=== PATIENT | male | born 1940 ===

== ENCOUNTER 2021-11-01 10:39 | Inpatient (IN) ==
[2021-11-01] MEDS ORDERED: ONDANSETRON 4 MG/2 ML VIAL IV STA (11:25)
[2021-11-01] MEDS ORDERED: PANTOPRAZOLE 40 MG VIAL IV STA (11:25)
[2021-11-01] MEDS ORDERED: SODIUM CHLORIDE 0.9% 1,000 ML IV STA (11:25)
[2021-11-01 11:40] LABS: Basophils % 0.1 % (0.0-0.8); Eosinophils % 0.1 % (0.00-10.9); Immature Granulocytes % 1.6 %; Immature Granulocytes Absolute 0.22 #; Lymphocytes # 2.6 10*3/uL (1.4-4.0); Lymphocytes % 19.2 % (21.2-54.2); Mean Corpuscular HGB Conc 30.4 GM/DL (32-36); Mean Corpuscular Volume 101.2 FL (87-102); Mean Platelet Volume 11.4 FL (9.6-12.0); Monocytes % 7.4 % (1.7-12.7); NRBC # 0.03 10*3/uL; Neutrophils % 71.6 % (38.7-73.9); Platelet Count 210 T/CUMM (130-400); Red Blood Count 1.66 MC/CUMM (3.8-5.5); White Blood Count 13.4 T/CUMM (4-12)
[2021-11-01 11:43] LABS: Hematocrit 16.8 VOL% (42.0-52.0); Hemoglobin 5.1 GM/DL (14.0-18.0)
[2021-11-01] MEDS ORDERED: SODIUM CHLORIDE 0.9% 1,000 ML IV PRN (11:47)
[2021-11-01 12:12] LABS: INR 1.2; PT Patient Result 13.4 SECS (10.5-12.0); Partial Thromboplastin Time 25.1 SECS (23.8-32.1)
[2021-11-01 12:52] LABS: Albumin 2.7 G/DL (3.4-5.0); Bilirubin,Total 0.5 MG/DL (0.20-1.00); Calcium 8.5 MG/DL (8.5-10.1); Osmolality,Calculated 308.4 MOS/KG (273-304); Potassium 3.2 MMOL/L (3.5-5.1); Total Protein 5.9 G/DL (6.4-8.2)
[2021-11-01] MEDS ORDERED: ACETAMINOPHEN 325 MG TABLET PO PRN (13:32)
[2021-11-01] MEDS ORDERED: DOCUSATE SODIUM 100 MG CAPSULE PO PRN (13:32)
[2021-11-01] MEDS ORDERED: GLUCAGON 1 MG VIAL IM PRN (13:32)
[2021-11-01] MEDS ORDERED: DEXTROSE 50% 25 GM/50 ML SYRINGE IV PRN (13:32)
[2021-11-01] MEDS ORDERED: ONDANSETRON 4 MG/2 ML VIAL IV PRN (13:32)
[2021-11-01] MEDS ORDERED: PROMETHAZINE 25 MG/1 ML VIAL IM PRN (13:32)
[2021-11-01] MEDS ORDERED: POTASSIUM CHLORIDE RIDER 10 MEQ/100 ML PREMIX IV PRN (13:50)
[2021-11-01 14:11] LABS: Thyroid Stimulating Hormone 0.783 uIU/ml (0.358-3.74)
[2021-11-01] MEDS: LACTATED RINGERS 1,000 ML IV SCH (20:27)
[2021-11-01] MEDS: PANTOPRAZOLE 40 MG VIAL IV SCH (21:04)
[2021-11-01 21:29] LABS: Hematocrit 21.9 VOL% (42.0-52.0)
[2021-11-01 21:31] LABS: Hemoglobin 6.8 GM/DL (14.0-18.0)
[2021-11-01 23:40] LABS: Hematocrit 21.3 VOL% (42.0-52.0); Hemoglobin 6.7 GM/DL (14.0-18.0)
[2021-11-02 06:16] LABS: Basophils % 0.3 % (0.0-0.8); Eosinophils # 0.1 10*3/uL (0.0-0.87); Eosinophils % 0.5 % (0.00-10.9); Hematocrit 20.7 VOL% (42.0-52.0); Hemoglobin 6.5 GM/DL (14.0-18.0); Immature Granulocytes % 2.9 %; Immature Granulocytes Absolute 0.34 #; Lymphocytes # 2.8 10*3/uL (1.4-4.0); Lymphocytes % 24.2 % (21.2-54.2); Mean Corpuscular HGB Conc 31.4 GM/DL (32-36); Mean Corpuscular Volume 95.8 FL (87-102); Mean Platelet Volume 11.3 FL (9.6-12.0); Monocytes % 12.3 % (1.7-12.7); NRBC # 0.11 10*3/uL; Neutrophils % 59.8 % (38.7-73.9); Platelet Count 153 T/CUMM (130-400); Red Blood Count 2.16 MC/CUMM (3.8-5.5); Red Cell Distribution Width 18.2 % (9.3-17.3); White Blood Count 11.7 T/CUMM (4-12)
[2021-11-02 06:18] LABS: Calcium 7.5 MG/DL (8.5-10.1); Osmolality,Calculated 317.6 MOS/KG (273-304); Potassium 3.2 MMOL/L (3.5-5.1)
[2021-11-02 06:28] LABS: Eosinophils 1 % (0-10); Lymphocytes 17 % (20-55); Nucleated Red Blood Cells 3 (0-5); Platelet Estimate Normal; Segmented Neutrophils 77 % (50-85); Total Cells Counted 100
[2021-11-02 06:29] LABS: Hypochromia 1+
[2021-11-02] MEDS: LACTATED RINGERS 1,000 ML IV SCH ×2 (06:42→06:43)
[2021-11-02] MEDS: PANTOPRAZOLE 40 MG VIAL IV SCH ×2 (09:17→22:10)
[2021-11-02 09:28] LABS: Hematocrit 22.8 VOL% (42.0-52.0)
[2021-11-02] MEDS ORDERED: DEXTROSE 10% 250 ML BAG IV PRN (11:00)
[2021-11-02] MEDS ORDERED: SODIUM CHLORIDE 0.9% 1,000 ML IV PRN (13:39)
[2021-11-02 14:25] LABS: Hematocrit 25.2 VOL% (42.0-52.0); Hemoglobin 7.9 GM/DL (14.0-18.0)
[2021-11-02] MEDS: DILTIAZEM CD 240 MG CAPSULE PO SCH (15:11)
[2021-11-02] MEDS: carvediloL 3.125 MG TABLET PO SCH ×2 (15:11→22:08)
[2021-11-02] MEDS: SODIUM CHLORIDE 0.45% 1,000 ML IV SCH (15:31)
[2021-11-02] MEDS: POTASSIUM CHLORIDE 20 MEQ TABLET PO PRN ×3 (16:43→22:08)
[2021-11-02 19:22] LABS: Hematocrit 22.3 VOL% (42.0-52.0)
[2021-11-02 20:59] LABS: Hematocrit 21.5 VOL% (42.0-52.0); Hemoglobin 6.9 GM/DL (14.0-18.0)
[2021-11-03] MEDS: SODIUM CHLORIDE 0.45% 1,000 ML IV SCH ×2 (00:31→11:51)
[2021-11-03 02:35] LABS: Hematocrit 21.8 VOL% (42.0-52.0); Hemoglobin 6.7 GM/DL (14.0-18.0)
[2021-11-03 02:48] LABS: Calcium 7.3 MG/DL (8.5-10.1); Osmolality,Calculated 308.7 MOS/KG (273-304); Potassium 4.3 MMOL/L (3.5-5.1)
[2021-11-03 06:57] LABS: Basophils % 0.3 % (0.0-0.8); Eosinophils # 0.1 10*3/uL (0.0-0.87); Eosinophils % 0.8 % (0.00-10.9); Hematocrit 23.2 VOL% (42.0-52.0); Hemoglobin 7.1 GM/DL (14.0-18.0); Immature Granulocytes % 3.4 %; Immature Granulocytes Absolute 0.42 #; Lymphocytes # 2.7 10*3/uL (1.4-4.0); Lymphocytes % 22.3 % (21.2-54.2); Mean Corpuscular HGB Conc 30.6 GM/DL (32-36); Mean Corpuscular Volume 97.9 FL (87-102); Mean Platelet Volume 11.2 FL (9.6-12.0); Monocytes % 14.8 % (1.7-12.7); Neutrophils % 58.4 % (38.7-73.9); Platelet Count 155 T/CUMM (130-400); Red Blood Count 2.37 MC/CUMM (3.8-5.5); Red Cell Distribution Width 19.4 % (9.3-17.3); White Blood Count 12.3 T/CUMM (4-12)
[2021-11-03 07:23] LABS: Lymphocytes 25 % (20-55); Metamyelocytes 1 %; Nucleated Red Blood Cells 2 (0-5); Promyelocytes 1 %; Segmented Neutrophils 60 % (50-85); Total Cells Counted 100
[2021-11-03 07:24] LABS: Hypochromia 2+; Platelet Estimate Normal; Polychromasia Few
[2021-11-03] MEDS ORDERED: SODIUM CHLORIDE 0.9% 1,000 ML IV PRN (07:57)
[2021-11-03] MEDS: carvediloL 3.125 MG TABLET PO SCH ×2 (08:51→20:56)
[2021-11-03] MEDS: DILTIAZEM CD 240 MG CAPSULE PO SCH (08:51)
[2021-11-03] MEDS: PANTOPRAZOLE 40 MG VIAL IV SCH (08:51)
[2021-11-03] MEDS: ATORVASTATIN 10 MG TABLET PO SCH (08:51)
[2021-11-03 09:10] LABS: Hematocrit 24.9 VOL% (42.0-52.0); Hemoglobin 7.6 GM/DL (14.0-18.0)
[2021-11-03 15:52] LABS: Hematocrit 24.9 VOL% (42.0-52.0); Hemoglobin 7.7 GM/DL (14.0-18.0)
[2021-11-03] MEDS: PANTOPRAZOLE 40 MG TABLET PO SCH (18:17)
[2021-11-03 20:19] LABS: Hematocrit 25.3 VOL% (42.0-52.0); Hemoglobin 7.8 GM/DL (14.0-18.0)
[2021-11-04] MEDS: SODIUM CHLORIDE 0.45% 1,000 ML IV SCH (01:10)
[2021-11-04 05:36] LABS: Basophils % 0.3 % (0.0-0.8); Eosinophils # 0.1 10*3/uL (0.0-0.87); Hematocrit 24.5 VOL% (42.0-52.0); Hemoglobin 7.6 GM/DL (14.0-18.0); Immature Granulocytes % 2.2 %; Lymphocytes # 1.8 10*3/uL (1.4-4.0); Lymphocytes % 19.8 % (21.2-54.2); Mean Corpuscular Volume 91.8 FL (87-102); Mean Platelet Volume 10.8 FL (9.6-12.0); Monocytes % 14.3 % (1.7-12.7); NRBC # 0.06 10*3/uL; Neutrophils % 62.4 % (38.7-73.9); Platelet Count 135 T/CUMM (130-400); Red Blood Count 2.67 MC/CUMM (3.8-5.5); Red Cell Distribution Width 22.8 % (9.3-17.3); White Blood Count 8.9 T/CUMM (4-12)
[2021-11-04] MEDS: PANTOPRAZOLE 40 MG TABLET PO SCH ×3 (05:54→18:59)
[2021-11-04 06:17] LABS: Calcium 7.6 MG/DL (8.5-10.1); Potassium 3.6 MMOL/L (3.5-5.1)
[2021-11-04 06:19] LABS: Anisocytosis 2+; Burr Cells Few; Macrocytosis Slight; Ovalocytes Few; Platelet Estimate Adequate; Poikilocytosis Slight
[2021-11-04] MEDS: DILTIAZEM CD 240 MG CAPSULE PO SCH (09:24)
[2021-11-04] MEDS: carvediloL 3.125 MG TABLET PO SCH ×2 (09:24→20:44)
[2021-11-04] MEDS: ATORVASTATIN 10 MG TABLET PO SCH (09:25)
[2021-11-04 18:02] LABS: Hematocrit 25.3 VOL% (42.0-52.0); Hemoglobin 7.7 GM/DL (14.0-18.0)
[2021-11-05 04:55] LABS: Basophils % 0.3 % (0.0-0.8); Eosinophils # 0.1 10*3/uL (0.0-0.87); Eosinophils % 1.1 % (0.00-10.9); Hematocrit 24.7 VOL% (42.0-52.0); Hemoglobin 7.6 GM/DL (14.0-18.0); Immature Granulocytes % 1.1 %; Immature Granulocytes Absolute 0.08 #; Lymphocytes # 1.2 10*3/uL (1.4-4.0); Lymphocytes % 16.6 % (21.2-54.2); Mean Corpuscular HGB Conc 30.8 GM/DL (32-36); Mean Corpuscular Volume 92.2 FL (87-102); Monocytes % 15.2 % (1.7-12.7); NRBC # 0.03 10*3/uL; Neutrophils % 65.7 % (38.7-73.9); Platelet Count 153 T/CUMM (130-400); Red Blood Count 2.68 MC/CUMM (3.8-5.5); Red Cell Distribution Width 22.1 % (9.3-17.3); White Blood Count 7.5 T/CUMM (4-12)
[2021-11-05 05:21] LABS: Calcium 7.3 MG/DL (8.5-10.1); Osmolality,Calculated 293.7 MOS/KG (273-304); Potassium 3.6 MMOL/L (3.5-5.1)
[2021-11-05] MEDS: carvediloL 3.125 MG TABLET PO SCH ×2 (08:46→20:08)
[2021-11-05] MEDS: PANTOPRAZOLE 40 MG TABLET PO SCH ×2 (08:46→20:07)
[2021-11-05] MEDS: ATORVASTATIN 10 MG TABLET PO SCH (08:47)
[2021-11-05] MEDS: DILTIAZEM CD 240 MG CAPSULE PO SCH (08:47)
[2021-11-05] MEDS ORDERED: LACTATED RINGERS 1,000 ML IV SCH (12:30)
[2021-11-05] MEDS ORDERED: LIDOCAINE 2% 5 ML VIAL ONE (12:43)
[2021-11-05] MEDS ORDERED: propofoL 200 MG/20 ML VIAL IV ONE (12:43)
[2021-11-06 05:29] LABS: Basophils % 0.3 % (0.0-0.8); Eosinophils % 0.4 % (0.00-10.9); Hematocrit 24.9 VOL% (42.0-52.0); Hemoglobin 7.6 GM/DL (14.0-18.0); Immature Granulocytes % 0.7 %; Immature Granulocytes Absolute 0.05 #; Lymphocytes # 1.1 10*3/uL (1.4-4.0); Lymphocytes % 15.4 % (21.2-54.2); Mean Corpuscular HGB Conc 30.5 GM/DL (32-36); Mean Corpuscular Volume 91.9 FL (87-102); Mean Platelet Volume 11.1 FL (9.6-12.0); Neutrophils % 67.2 % (38.7-73.9); Platelet Count 157 T/CUMM (130-400); Red Blood Count 2.71 MC/CUMM (3.8-5.5); Red Cell Distribution Width 21.2 % (9.3-17.3); White Blood Count 7.3 T/CUMM (4-12)
[2021-11-06 05:56] LABS: Hypochromia 1+; Lymphocytes 17 % (20-55); Platelet Estimate Normal; Segmented Neutrophils 74 % (50-85); Total Cells Counted 100
[2021-11-06 06:00] LABS: Calcium 7.6 MG/DL (8.5-10.1); Potassium 3.8 MMOL/L (3.5-5.1)
[2021-11-06 06:03] LABS: % Iron Saturation 4.7 % (18-50); Ferritin 23.5 ng/mL (26-388)
[2021-11-06 06:08] LABS: Folate 9.29 NG/ML (5.38-24.0)
[2021-11-06] MEDS: PANTOPRAZOLE 40 MG TABLET PO SCH (06:16)
[2021-11-06 06:52] LABS: Sedimentation Rate-Westergren 18 MM/HR (0-20)
[2021-11-06] MEDS ORDERED: CYANOCOBALAMIN 500 MCG TABLET PO SCH (09:00)
[2021-11-06] MEDS ORDERED: CHOLECALCIFEROL 5,000 UNIT TABLET PO SCH (09:00)
[2021-11-06] MEDS ORDERED: FERROUS GLUCONATE 324 MG TABLET PO SCH (09:00)
[2021-11-06] MEDS: ATORVASTATIN 10 MG TABLET PO SCH (09:33)
[2021-11-06] MEDS: carvediloL 3.125 MG TABLET PO SCH (09:33)
[2021-11-06] MEDS: DILTIAZEM CD 240 MG CAPSULE PO SCH (09:33)
[2021-11-06] MEDS ORDERED: IRON SUCROSE 300 MG in SODIUM CHLORIDE 0.9% 100 ML IV ONE (09:56)
[2021-11-06] MEDS ORDERED: PHENOL 1.4% THROAT SPRAY 177 ML BOTTLE PO PRN (10:29)
[2021-11-06] MEDS ORDERED: FERRIC GLUCONATE COMPLEX 125 MG in SODIUM CHLORIDE 0.9% 100 ML IV ONE (10:30)
[2021-11-06 13:43] VITALS: BP 146/67
[2021-11-07] MEDS ORDERED: CHOLECALCIFEROL 1,000 UNIT TABLET PO SCH (09:00)
== END 2021-11-06 14:43 | disposition home or self-care (01) | DRG 378 ==
LOC: EDUNIT# → EDBD → N.ED 10:39 → N.EDINP 12:18 → SUATTDRO 12:18 → N.TELES 19:04
PROVIDERS: ADMIT Internal Medicine; ATTEND Hospitalist